=== PATIENT | female | born 1945 | race Caucasian/White ===

== ENCOUNTER → 2024-03-09 07:23 | Outpatient (REF) | payer OTHER, SELFPAY | LOC: MRI 3T 07:23 | PROVIDERS: ATTENDING PHYSICIAN Anesthesiology Pain Medicine; FAMILY PHYSICIAN Family Medicine | DX: M54.12 Radiculopathy, cervical region (principal) | CPT/HCPCS: 72141 ==

== ENCOUNTER 2025-09-11 07:57 | Emergency (ER) | payer OTHER, SELFPAY ==
[2025-09-11 08:00] VITALS: BP 155/86
[2025-09-11 08:23] VITALS: BMI 28.7
[2025-09-11] MEDS: VENTOLIN NEBULES 2.5 MG INH (09:15)
[2025-09-11] MEDS: DELTASONE 40 MG PO (09:15)
--- NOTE | 2025-09-11 09:25 | ED.GENMED ---
History of Present Illness
General
Chief Complaint: Eye Problems
Source: patient
Time Seen by Provider: 09/11/25 08:57
History of Present Illness
History of Present Illness:
80-year-old female with past medical history of asthma, hypertension, hyperlipidemia and hypothyroidism presenting to the emergency department for evaluation of 2 separate concerns with the first concern of a stye to her left eye since 06 September,
last night she states the bump seemed to be a little bit larger and more uncomfortable which is what ultimately made her want to come to the ER today. Secondary concern of some URI-like symptoms that started over the last 2 to 3 days with some
sinus congestion and a mild cough as well as patient noting some wheezing. She has been using warm compresses for the stye but has not attempted any other medications. She is unaware of any fevers, no known sick contacts, no recent antibiotics.
She denies any chest pain, significant shortness of breath, lower extremity pain or swelling.
Past History
Past History
ED Past Medical History: Asthma, HTN, Hypercholesterolemia, Hypothyroidism and Other (gout, htn)
ED Past Surgical History: Gynecological (Tubal ligation, hysterectomy), Orthopedic (Slipped disc repair, rotator cuff repair), Tonsilectomy and Urological (Bladder surgery)
Social History
Tobacco: Non-smoker
Alcohol: None
Drug: None
Personal:
Living: with family
Review of Systems
Review of Systems
All Other Systems: ROS reviewed and negative except as documented in HPI and ROS
Phy Exam
Physical Exam
Physical Exam:
GENERAL: Alert , in no apparent distress
HEAD: Normocephalic atraumatic
EYE: conjunctiva clear, stye to the external lower lid along the medial portion of the eye, slight erythema of the external eyelid but no KIRSTEN orbital erythema/edema/proptosis
NECK: Supple
ENT: o/p clr, mmm.
CARDIAC: Regular rate and rhythm
LUNGS: Expiratory phase wheeze within the posterior lung gambino but no acute respiratory distress
NEUROLOGICAL: Alert and oriented
SKIN: Warm and dry, skin intact.
MUSCULOSKELETAL: well perfused.
PSYCH: Normal and appropriate interaction.
Scores
Heart Failure Risk
Heart Failure Risk Score: Not Applicable
Heart Score for Chest Pain Patients
STEMI patient?: Not applicable
Withdrawal Assessment of Alcohol
Withdrawal Assessment Completed?: Not applicable
Course
Orders/Labs/Results
Orders:
Orders
09/11/25 09:08
Albuterol Nebs [Ventolin Nebules] 2.5 mg INH R NOW STA
Prednisone [Deltasone] 40 mg PO NOW STA
09/11/25 09:12
COVID-19 Antigen Urgent
Source: Nasal Swab
Influenza A+B Rapid Molecular Urgent
SHARAD Source: Nasal Swab
Specimen Description:
Vital Signs
Initial and Last Documented VS:
Initial Vital Signs
Temp Pulse Resp BP Pulse Ox
98.6 F 86 16 155/86 97
09/11/25 08:00 09/11/25 08:00 09/11/25 08:00 09/11/25 08:00 09/11/25 08:00
Last Documented Vital Signs
Temp Pulse Resp BP Pulse Ox
98.6 F 77 20 138/68 95
09/11/25 08:00 09/11/25 09:54 09/11/25 09:54 09/11/25 09:54 09/11/25 09:54
MDM/Problems Addressed
Differential Diagnosis Includes:
Internal/external stye
Chalazion
Blepharitis
Dacryocystitis
Conjunctivitis
Sinusitis
COVID/flu/other viral etiology
Pneumonia
Asthma exacerbation
MDM/Problems Addressed:
80-year-old female presenting to the ER with 2 concerns including a stye to the left eye as well as some mild viral URI-like symptoms. Patient hemodynamically stable and in no acute distress. She does appear to have a stye to the left eye and
advised continued supportive care for this with warm compresses as well as Tylenol/NSAIDs for the pain as needed. For her upper respiratory infection we will check COVID and flu testing. Albuterol treatment and prednisone ordered. Disposition
pending.
*Pulse Oximetry
SaO2: 97
Oxygen Mode of Delivery: Room air
Patient hypoxic: no
*Critical Care Note
Total Time (30-74mins, 75-104mins- exclusive of procedures): Not Applicable
Patient Management
Escalation/DeEscalation of care consider admission/obs:
Patient flu positive. Wheezing improved with neb treatment. She is not a Tamiflu candidate given symptoms been ongoing for greater than 48 hours. Stable for discharge home. Aware of return precautions to the ER.
ED Attending Note
-
Portions of this chart may have been created with voice recognition software.� Occasional wrong word or��sound alike� substitutions may have occurred due to the inherent limitations of voice recognition software.
Discharge Plan
Departure
Patient Disposition: Home (Routine Discharge)
Date of Disposition: 09/11/25
Time of Disposition: 09:50
Patient with high blood pressure during this ER visit?: Yes
Discharge Problem:
Influenza A, Hordeolum externum left lower eyelid
Instructions: Flu in adults - ED (DC)
Prescriptions:
New
albuterol sulfate [Ventolin HFA] 90 mcg/actuation HFA aerosol inhaler
2 puff inhalation Q6H PRN (Reason: shortness of breath or wheezing) Qty: 6.7 0RF
No Action
triamterene-hydrochlorothiazid 1 CAPSULE capsule
1 cap PO Q48H
warfarin 5 MG tablet
3 mg PO QPM
simvastatin 10 MG tablet
10 mg PO HS
valsartan 80 MG tablet
160 mg PO DAILY
acetaminophen-codeine 1 TABLET tablet
1 - 2 tab PO BIDPRN PRN (Reason: severepain)
gabapentin 300 MG capsule
600 mg PO QID
zolpidem 5 MG tablet
5 mg PO HSPRN PRN (Reason: insomnia)
metoprolol succinate 25 MG tablet extended release 24 hr
25 mg PO DAILY
colchicine 0.6 MG tablet
0.6 mg PO DAILY
albuterol sulfate 1 PUFF HFA aerosol inhaler
2 puff inhalation R Q4HPRN PRN (Reason: sob)
warfarin [Jantoven] 0.5 MG tablet
0.5 mg PO TUTHSA Qty: 30 0RF
levothyroxine 75 MCG tablet
75 mcg PO DAILY Qty: 30 0RF
Referrals:
Alfonso Diaz MD [Family Provider, Family Practice]
Interventions
Interventions:
*General Assessment Last Done: 09/11/25 08:00
*Neglect/Abuse Screening Last Done: 09/11/25 08:00
*ED COVID-19 Vaccine History Last Done: 09/11/25 08:23
*ED Influenza Vaccine History Last Done: 09/11/25 08:23
[facility] Risk Assessment Tool Last Done: 09/11/25 08:23
*Risk Screen - Suicide (C-SSRS) Last Done: 09/11/25 08:00
*Nursing Disposition Last Done: 09/11/25 09:55
Discharge Date and Time
Discharge Date/Time: 09/11/25 09:59
Print Language: CAMEROONIAN
[2025-09-11 09:45] LABS: COVID-19 Antigen Negative (Negative)
[2025-09-11 09:54] VITALS: BP 138/68
== END 2025-09-11 09:59 | disposition home or self-care (01) ==
LOC: EMR 07:57
PROVIDERS: Physician Assistant Medical; EMERGENCY PHYSICIAN Emergency Medicine; FAMILY PHYSICIAN Family Medicine
DX: J10.1 Influenza due to other identified influenza virus with other respiratory manifestations (principal); H00.015 Hordeolum externum left lower eyelid; J45.909 Unspecified asthma, uncomplicated; I10 Essential (primary) hypertension; E78.00 Pure hypercholesterolemia, unspecified; E03.9 Hypothyroidism, unspecified; Z11.52 Encounter for screening for COVID-19
CPT/HCPCS: 94640; 99283; 87502; 87811